=== PATIENT | female | born 1970 | race Two or more races ===

== ENCOUNTER 2022-11-20 05:33 | Inpatient (IN) | payer OTHER ==
[~2022-11-20] VITALS: Ht 162.6 cm; Wt 74.9 kg
[2022-11-20] MEDS ORDERED: POLYMYXIN B SULFATE 500,000 UNITS ONE (05:52)
[2022-11-20] MEDS ORDERED: BUPIVACAINE 0.5 % PF 150 MG/30 ML VIAL ONE ×2 (05:53→06:23)
[2022-11-20] MEDS ORDERED: ANESTHESIA TRAY IN PYXIS 1 EA TRAY MC ONE (05:53)
[2022-11-20] MEDS ORDERED: METHYLENE BLUE 10 ML VIAL ONE (06:03)
[2022-11-20] MEDS ORDERED: MIDAZOLAM HCL 2 MG/2ML VIAL ONE (06:22)
[2022-11-20] MEDS ORDERED: FENTANYL PF 250MCG/5ML AMPUL ONE (06:22)
[2022-11-20] MEDS ORDERED: TRANEXAMIC ACID 3,000 MG in SODIUM CHLORIDE IRRIG SOLUTION 70 ML IR ONE ×2 (06:30→08:30)
[2022-11-20 06:35] LABS: PREGNANCY TEST URINE QUAL NEGATIVE (NEGATIVE)
[2022-11-20] MEDS ORDERED: HYDROMORPHONE 1 MG/1 ML DISP.SYRIN ONE (08:59)
[2022-11-20] MEDS ORDERED: HYDROCODONE/APAP 5/325MG TABLET PO PRN (09:00)
[2022-11-20] MEDS ORDERED: BISACODYL SUPP (10 MG) 10 MG/SUPP.RECT SUPP.RECT RC PRN (09:00)
[2022-11-20] MEDS ORDERED: ZOLPIDEM TARTRATE 5 MG TABLET PO PRN (09:00)
[2022-11-20] MEDS ORDERED: DOCUSATE SODIUM 250 MG CAPSULE PO PRN (09:00)
[2022-11-20] MEDS ORDERED: ONDANSETRON HCL/PF 4 MG/2 ML VIAL IV PRN (09:00)
[2022-11-20] MEDS ORDERED: SENNOSIDES 8.6 MG TABLET PO PRN (09:00)
[2022-11-20] MEDS ORDERED: ACETAMINOPHEN 325 MG TABLET PO PRN ×2 (09:00→17:00)
[2022-11-20] MEDS: IV D5/0.45 NACL 1,000 ML IV PRN ×2 (10:12→18:21)
[2022-11-20] MEDS ORDERED: HYDROCODONE/APAP 10/325MG TABLET PO ONE (10:14)
[2022-11-20] MEDS ORDERED: HYDR-3980 PO (10:18)
[2022-11-20] MEDS ORDERED: ACET1TAB23 PO (10:18)
[2022-11-20] MEDS: ASPIRIN 325 MG TABLET PO SCH (10:24)
[2022-11-20] MEDS ORDERED: CLONIDINE HCL 0.1 MG TABLET PO PRN (10:30)
[2022-11-20] MEDS ORDERED: MAG HYDROX/AL HYDROX/SIMETH 30 ML UDC PO PRN ×2 (10:30→17:00)
[2022-11-20] MEDS ORDERED: MENTHOL/CETYLPYRD (CEPACOL) 1 LOZ LOZENGE PO PRN (10:30)
[2022-11-20] MEDS ORDERED: HYDROMORPHONE 1 MG/1 ML DISP.SYRIN SQ PRN (10:30)
[2022-11-20] MEDS ORDERED: diphenhydrAMINE HCL 25 MG CAPSULE PO PRN (10:30)
[2022-11-20] MEDS ORDERED: ACETAMINOPHEN W/ CODEINE#3 1 EA TABLET PO PRN (10:30)
[2022-11-20 10:54] VITALS: BP 112/80; TEMP 97.7; O2SAT 98
[2022-11-20] MEDS: HYDROMORPHONE 1 MG/1 ML DISP.SYRIN IV PRN ×2 (12:17→15:23)
[2022-11-20] MEDS: ANCEF 1 GM/50 ML D5W IV SCH ×4 (14:32→22:59)
[2022-11-20 16:08] VITALS: BP_SYST 106; BP_SYST 148; BP_DIAS 48; BP_DIAS 67; TEMP 98.1; TEMP 98.2; O2SAT 97; O2SAT 98
[2022-11-20] MEDS: DOCUSATE SODIUM 100 MG CAPSULE PO SCH (16:48)
[2022-11-20] MEDS ORDERED: Z GUARD REMEDY 4 OZ OINT TP PRN (17:00)
[2022-11-20] MEDS ORDERED: MAGNESIUM HYDROXIDE 30 ML UDC PO PRN (17:00)
[2022-11-20] MEDS ORDERED: SCOPOLAMINE PATCH 1 MG/72HR TD SCH (17:00)
[2022-11-20] MEDS ORDERED: ONDANSETRON HCL/PF 4 MG/2 ML VIAL IVP PRN (17:00)
[2022-11-20 20:00] VITALS: BP 101/69; TEMP 97.7; O2SAT 99
[2022-11-20] MEDS: FAMOTIDINE (20 MG) 20 MG TABLET PO SCH (20:05)
[2022-11-20] MEDS: HYDROCODONE/APAP 10/325MG TABLET PO PRN ×2 (20:06→23:58)
[2022-11-21] MEDS: HYDROCODONE/APAP 10/325MG TABLET PO PRN ×6 (05:03→21:08)
[2022-11-21] MEDS: IV D5/0.45 NACL 1,000 ML IV PRN ×2 (05:33→13:56)
[2022-11-21 06:03] LABS: BASOPHILS % (AUTO) 0.5 % (0.0-2.0); EOSINOPHILS % (AUTO) 0.3 % (0.0-6.0); HEMATOCRIT 36 % (33-45); HEMOGLOBIN 12.2 g/dL (11.5-14.8); LYMPHOCYTES # (AUTO) 1.4 K/uL (0.8-4.8); LYMPHOCYTES % (AUTO) 20.2 % (20.0-44.0); MEAN CORPUSCULAR HEMOGLOBIN 32 PG (26.0-33.0); MEAN CORPUSCULAR HGB CONC 34 g/dl (31.0-36.0); MEAN CORPUSCULAR VOLUME 94 fL (82-100); MONOCYTES # (AUTO) 0.8 K/uL (0.1-1.30); MONOCYTES % (AUTO) 11.9 % (2.0-12.0); NEUTROPHILS # (AUTO) 4.8 K/uL (1.8-8.9); NEUTROPHILS % (AUTO) 67.1 % (43.0-81.0); PLATELET COUNT (AUTO) 236 K/uL (150-450); RED BLOOD CELL COUNT(AUTO) 3.88 MIL/uL (4.0-5.2); RED CELL DISTRIBUTION WIDTH 13.3 % (11.5-15.0); WHITE BLOOD COUNT (AUTO) 7.1 K/uL (4.3-11.0)
[2022-11-21 06:18] LABS: CALCIUM, SERUM 8.3 mg/dL (8.5-10.1); CREATININE 0.9 mg/dL (0.6-1.3); MAGNESIUM 2.2 mg/dL (1.8-2.4); PHOSPHORUS 4.2 mg/dL (2.5-4.9); POTASSIUM 3.6 mmol/L (3.5-5.1)
[2022-11-21 06:26] LABS: THYROID STIMULATING HORMONE 2.617 uIU/mL (0.358-3.74)
[2022-11-21 08:00] VITALS: BP 117/73; TEMP 98.2; O2SAT 97
[2022-11-21] MEDS: ASPIRIN 325 MG TABLET PO SCH (08:58)
[2022-11-21] MEDS: FAMOTIDINE (20 MG) 20 MG TABLET PO SCH (08:59)
[2022-11-21] MEDS: DOCUSATE SODIUM 100 MG CAPSULE PO SCH ×2 (08:59→17:11)
[2022-11-21] MEDS: PANTOPRAZOLE 40 MG TABLET.DR PO SCH (08:59)
[2022-11-21] MEDS ORDERED: HYDROMORPHONE 1 MG/1 ML DISP.SYRIN SQ PRN (12:00)
[2022-11-21 16:00] VITALS: BP 116/64; TEMP 98.2; O2SAT 98
[2022-11-21 20:56] VITALS: BP 124/78; TEMP 99; O2SAT 97
[2022-11-22] MEDS: IV D5/0.45 NACL 1,000 ML IV PRN (00:29)
[2022-11-22] MEDS: HYDROCODONE/APAP 10/325MG TABLET PO PRN ×3 (00:34→18:22)
[2022-11-22 07:00] VITALS: BP 109/67; TEMP 98.2; O2SAT 95
[2022-11-22] MEDS: PANTOPRAZOLE 40 MG TABLET.DR PO SCH (08:01)
[2022-11-22] MEDS: ASPIRIN 325 MG TABLET PO SCH (08:01)
[2022-11-22] MEDS: DOCUSATE SODIUM 100 MG CAPSULE PO SCH ×2 (08:01→16:44)
[2022-11-22] MEDS ORDERED: ONDANSETRON HCL 4 MG/5 ML SOLUTION PO ONE (11:00)
[2022-11-22 16:00] VITALS: BP 129/84; TEMP 98.1; O2SAT 98
== END 2022-11-22 19:30 | disposition home or self-care (01) | DRG 470 ==
LOC: DS 05:33 → MED 05:35 → UNDODISIN 11-21 18:35
PROVIDERS: ADMIT Nurse Practitioner Acute Care; ATTEND Nurse Practitioner Acute Care
PROC: 0SRC0J9 Replacement of Right Knee Joint with Synthetic Substitute, Cemented, Open Approach (ICD-10-PCS; principal; 2022-11-20)
DX: M17.11 Unilateral primary osteoarthritis, right knee (principal); E66.9 Obesity, unspecified; Z79.82 Long term (current) use of aspirin; Z68.28 Body mass index [BMI] 28.0-28.9, adult
CPT/HCPCS: 36415; 80048-TC; 83735-TC; 84100-TC; 84443-TC; 84703-TC; 85025-TC; 87081-TC; 88304-TC; 88311-TC; 97110-TC; 97116-TC; 97530-TC; A4217; A4223; A6253; A6403; C1713; C1776; G0378; J0690; J1100; J1170; J2250; J2405; J2704; J3010; J3490; J7030; J7060; L1830; Q0162; Q9968